=== PATIENT | male | born 1940 | race Caucasian/White ===

== ENCOUNTER 2023-02-15 14:49 | Inpatient (IN) | payer MEDICARE ==
[~2023-02-15] VITALS: Ht 167.6 cm; Wt 75.3 kg
[2023-02-15 16:06] LABS: BASOPHILS % (AUTO) 0.4 % (0.0-2.0); EOSINOPHILS # (AUTO) 0.1 K/uL (0.0-0.7); HEMATOCRIT 37 % (39-51); HEMOGLOBIN 12.4 g/dL (13.5-17.5); LYMPHOCYTES # (AUTO) 2.9 K/uL (0.8-4.8); LYMPHOCYTES % (AUTO) 26.7 % (20.0-44.0); MEAN CORPUSCULAR HEMOGLOBIN 32 PG (26.0-33.0); MEAN CORPUSCULAR HGB CONC 34 g/dl (31.0-36.0); MEAN CORPUSCULAR VOLUME 96 fL (80-96); MONOCYTES # (AUTO) 1.3 K/uL (0.1-1.30); MONOCYTES % (AUTO) 11.4 % (2.0-12.0); NEUTROPHILS # (AUTO) 6.6 K/uL (1.8-8.9); NEUTROPHILS % (AUTO) 60.5 % (43.0-81.0); PLATELET COUNT (AUTO) 235 K/uL (150-450); RED BLOOD CELL COUNT(AUTO) 3.84 MIL/uL (4.5-6.0); RED CELL DISTRIBUTION WIDTH 14.2 % (11.5-15.0)
[2023-02-15 16:32] LABS: INR 1.03 (0.91-1.10); PROTHROMBIN TIME 10.9 SECS (9.2-11.1)
[2023-02-15 16:36] LABS: CALCIUM, SERUM 8.4 mg/dL (8.5-10.1); CARBON DIOXIDE 26 mmol/L (21-32); CHLORIDE 102 mmol/L (98-107); CREATININE 1.2 mg/dL (0.6-1.3); GLUCOSE 106 mg/dL (74-106); POTASSIUM 5.5 mmol/L (3.5-5.1); SODIUM SERUM 135 mmol/L (136-145); UREA NITROGEN, BLOOD 38 mg/dL (7-18)
[2023-02-15 16:46] LABS: ALANINE AMINOTRANSFERASE 11 U/L (12-78); ALBUMIN 3.2 g/dL (3.4-5.0); ALKALINE PHOSPHATASE 65 U/L (46-116); ASPARTATE AMINOTRANSFERASE 14 U/L (15-37); BILIRUBIN,DIRECT 0.1 mg/dL (0.0-0.2); BILIRUBIN,TOTAL 0.5 mg/dL (0.2-1.0); TOTAL PROTEIN, SERUM 7.7 g/dL (6.4-8.2)
[2023-02-15 16:54] LABS: LACTIC ACID 1.3 mmol/L (0.4-2.0)
[2023-02-15 17:00] LABS: APPEARANCE,URINE CLOUDY (CLEAR); BILIRUBIN,URINE NEGATIVE (NEGATIVE); BLOOD, URINE 2+ Ery/uL (NEGATIVE); COLOR,URINE YELLOW (YELLOW); KETONES,URINE 1+ mg/dL (NEGATIVE); LEUKOCYTE ESTERASE ,URINE 2+ (NEGATIVE); NITRITE, URINE NEGATIVE (NEGATIVE); PROTEIN,URINE 3+ mg/dl (NEGATIVE); UGLUCOSE NEGATIVE (NEGATIVE); UROBILINOGEN,URINE 0.2 EU/dL (0.2)
[2023-02-15] MEDS ORDERED: APIX2.5T PO (17:02)
[2023-02-15] MEDS ORDERED: GUAI5LIQ10 PO (17:02)
[2023-02-15] MEDS ORDERED: ROPI2TAB7 PO (17:18)
[2023-02-15] MEDS ORDERED: DIGO250T PO (17:18)
[2023-02-15] MEDS ORDERED: SERT50TA PO (17:18)
[2023-02-15] MEDS ORDERED: FOLI0.8T3 PO (17:18)
[2023-02-15] MEDS ORDERED: DEXT15DR6 EACHEYE (17:18)
[2023-02-15] MEDS ORDERED: ENTA200T30 PO (17:18)
[2023-02-15] MEDS ORDERED: BRIM5DRO2 RIGHTEYE (17:18)
[2023-02-15] MEDS ORDERED: BROM1.7D9 EACHEYE (17:18)
[2023-02-15] MEDS ORDERED: MAGN400O6 PO (17:18)
[2023-02-15] MEDS ORDERED: METO25TA4 PO (17:18)
[2023-02-15] MEDS ORDERED: TIMO5DRO35 EACHEYE (17:18)
[2023-02-15] MEDS ORDERED: ACET-868 PO (17:18)
[2023-02-15] MEDS ORDERED: PIMA34CA PO (17:18)
[2023-02-15] MEDS ORDERED: CYAN-51 PO (17:18)
[2023-02-15] MEDS ORDERED: MELA3TAB41 PO (17:18)
[2023-02-15] MEDS ORDERED: FLUT1DIS IH (17:18)
[2023-02-15] MEDS ORDERED: CARB1TAB24 PO (17:18)
[2023-02-15] MEDS ORDERED: CLOP75TA15 PO (17:18)
[2023-02-15] MEDS ORDERED: LATA7.5D EACHEYE (17:18)
[2023-02-15] MEDS ORDERED: SACC250C9 PO (17:18)
[2023-02-15] MEDS ORDERED: MAGN400T8 PO (17:18)
[2023-02-15] MEDS ORDERED: CEFTRIAXONE 1GM BAG (ER ONLY) 1 GM/50 ML PIGGYBACK IV ONE (18:30)
[2023-02-15] MEDS ORDERED: CEFTRIAXONE 1GM BAG (ER ONLY) 50 ML IV ONE (18:30)
[2023-02-15 18:45] LABS: ADD URINE CULTURE YES; BACTERIA,URINE Many /HPF (None Seen); RBC,URINE 21-50 /HPF (0-2); WBC,URINE 21-50 /HPF (0-3)
[2023-02-15 18:46] LABS: SQUAMOUS EPITHELIAL CELL,UR Few /HPF (None Seen)
[2023-02-15 20:30] VITALS: BP_SYST 168; BP_SYST 178; BP_DIAS 70; BP_DIAS 87; TEMP 97.7; O2SAT 95
[2023-02-15] MEDS ORDERED: MAGNESIUM HYDROXIDE 30 ML UDC PO PRN ×2 (20:30→21:00)
[2023-02-15] MEDS ORDERED: Medication Not On Formulary EA (Melatonin 3 MG) PO PRN (20:30)
[2023-02-15] MEDS ORDERED: ACETAMINOPHEN 325 MG TABLET PO PRN (21:00)
[2023-02-15] MEDS ORDERED: MAG HYDROX/AL HYDROX/SIMETH 30 ML UDC PO PRN (21:00)
[2023-02-15] MEDS ORDERED: ONDANSETRON HCL/PF 4 MG/2 ML VIAL IVP PRN (21:00)
[2023-02-15] MEDS ORDERED: Z GUARD REMEDY 4 OZ OINT TP PRN (21:00)
[2023-02-15] MEDS: ENTACAPONE 200 MG TABLET PO SCH (21:39)
[2023-02-15] MEDS: CARBIDOPA/LEVODOPA 25/250 MG 1 UDTAB PO SCH (21:39)
[2023-02-15] MEDS: SERTRALINE HCL 50 MG TABLET PO SCH (21:39)
[2023-02-16] VITALS (13 sets, daily range): BP systolic 98–131; BP diastolic 52–76; TEMP 97.5–98.6; O2SAT 93–99
[2023-02-16] MEDS: IV NS 0.9% 1,000 ML IV PRN ×2 (00:10→13:30)
[2023-02-16] MEDS: ACETAMINOPHEN 325 MG TABLET PO PRN (00:22)
[2023-02-16] MEDS: ALBUTEROL FS 2.5 MG/3 ML VIAL.NEB NEB SCH ×4 (00:55→20:02)
[2023-02-16 06:47] LABS: CALCIUM, SERUM 7.9 mg/dL (8.5-10.1); CARBON DIOXIDE 26 mmol/L (21-32); CHLORIDE 104 mmol/L (98-107); CREATININE 1.6 mg/dL (0.6-1.3); GLUCOSE 90 mg/dL (74-106); MAGNESIUM 2.4 mg/dL (1.8-2.4); PHOSPHORUS 4.4 mg/dL (2.5-4.9); POTASSIUM 4.8 mmol/L (3.5-5.1); SODIUM SERUM 138 mmol/L (136-145); UREA NITROGEN, BLOOD 38 mg/dL (7-18)
[2023-02-16 06:50] LABS: BASOPHILS % (AUTO) 0.3 % (0.0-2.0); EOSINOPHILS # (AUTO) 0.1 K/uL (0.0-0.7); EOSINOPHILS % (AUTO) 0.9 % (0.0-6.0); HEMATOCRIT 35 % (39-51); HEMOGLOBIN 11.7 g/dL (13.5-17.5); LYMPHOCYTES # (AUTO) 2.8 K/uL (0.8-4.8); LYMPHOCYTES % (AUTO) 30.3 % (20.0-44.0); MEAN CORPUSCULAR HEMOGLOBIN 33 PG (26.0-33.0); MEAN CORPUSCULAR HGB CONC 34 g/dl (31.0-36.0); MEAN CORPUSCULAR VOLUME 96 fL (80-96); MONOCYTES # (AUTO) 0.9 K/uL (0.1-1.30); MONOCYTES % (AUTO) 9.4 % (2.0-12.0); NEUTROPHILS # (AUTO) 5.4 K/uL (1.8-8.9); NEUTROPHILS % (AUTO) 59.1 % (43.0-81.0); PLATELET COUNT (AUTO) 230 K/uL (150-450); RED BLOOD CELL COUNT(AUTO) 3.61 MIL/uL (4.5-6.0); RED CELL DISTRIBUTION WIDTH 14.2 % (11.5-15.0); WHITE BLOOD COUNT (AUTO) 9.2 K/uL (4.3-11.0)
[2023-02-16] MEDS: BUDESONIDE RESPULE INH 0.5 MG/2 ML AMPUL.NEB NEB SCH ×2 (08:05→14:09)
[2023-02-16] MEDS: CLOPIDOGREL BISULFATE 75 MG TABLET PO SCH (08:41)
[2023-02-16] MEDS: FOLIC ACID 1 MG TABLET PO SCH (08:41)
[2023-02-16] MEDS: ropiniROLE 0.5 MG TABLET PO SCH ×3 (08:41→16:29)
[2023-02-16] MEDS: CARBIDOPA/LEVODOPA 25/250 MG 1 UDTAB PO SCH ×4 (08:41→21:25)
[2023-02-16] MEDS: CYANOCOBALAMIN 500 MCG TABLET PO SCH (08:41)
[2023-02-16] MEDS: APIXABAN 2.5 MG TABLET PO SCH ×2 (08:46→16:30)
[2023-02-16] MEDS: METOPROLOL SUCCINATE 25 MG TAB.SR.24H PO SCH ×2 (08:48→16:31)
[2023-02-16] MEDS: ENTACAPONE 200 MG TABLET PO SCH ×4 (09:00→21:25)
[2023-02-16] MEDS: POLYVINYL ALCOHOL 15 ML BOTTLE EACHEYE SCH ×3 (09:00→16:29)
[2023-02-16] MEDS ORDERED: FLUTICASONE/SALMETEROL 1 DISK IH SCH (09:00)
[2023-02-16] MEDS: DIGOXIN 0.25 MG TABLET PO SCH (13:11)
[2023-02-16 17:35] LABS: CREATININE, URINE 57.6 MG/DL (30.0-125.0); URINE TOTAL PROTEIN 155.6 mg/dL (0-11.9)
[2023-02-16] MEDS: CEFTRIAXONE 1 G in IV D5W 50 ML IV SCH (18:05)
[2023-02-16] MEDS: MAGNESIUM OXIDE 400 MG TABLET PO SCH (18:05)
[2023-02-16] MEDS: SERTRALINE HCL 50 MG TABLET PO SCH (21:25)
[2023-02-17] VITALS (15 sets, daily range): BP systolic 99–180; BP diastolic 70–93; TEMP 97.5–98.5; O2SAT 94–100
[2023-02-17] MEDS: ALBUTEROL FS 2.5 MG/3 ML VIAL.NEB NEB SCH ×5 (00:59→19:31)
[2023-02-17] MEDS: ACETAMINOPHEN 325 MG TABLET PO PRN (03:00)
[2023-02-17] MEDS: IV NS 0.9% 1,000 ML IV PRN ×2 (03:10→18:07)
[2023-02-17 06:54] LABS: BASOPHILS % (AUTO) 0.4 % (0.0-2.0); EOSINOPHILS # (AUTO) 0.1 K/uL (0.0-0.7); EOSINOPHILS % (AUTO) 1.4 % (0.0-6.0); HEMATOCRIT 36 % (39-51); HEMOGLOBIN 11.8 g/dL (13.5-17.5); LYMPHOCYTES % (AUTO) 29.7 % (20.0-44.0); MEAN CORPUSCULAR HEMOGLOBIN 32 PG (26.0-33.0); MEAN CORPUSCULAR HGB CONC 33 g/dl (31.0-36.0); MEAN CORPUSCULAR VOLUME 97 fL (80-96); MONOCYTES # (AUTO) 0.8 K/uL (0.1-1.30); MONOCYTES % (AUTO) 8.2 % (2.0-12.0); NEUTROPHILS # (AUTO) 6.1 K/uL (1.8-8.9); NEUTROPHILS % (AUTO) 60.3 % (43.0-81.0); PLATELET COUNT (AUTO) 229 K/uL (150-450); RED BLOOD CELL COUNT(AUTO) 3.68 MIL/uL (4.5-6.0); RED CELL DISTRIBUTION WIDTH 14.4 % (11.5-15.0); WHITE BLOOD COUNT (AUTO) 10.2 K/uL (4.3-11.0)
[2023-02-17 07:14] LABS: ALANINE AMINOTRANSFERASE 9 U/L (12-78); ALBUMIN 3.1 g/dL (3.4-5.0); ASPARTATE AMINOTRANSFERASE 15 U/L (15-37); BILIRUBIN,TOTAL 0.5 mg/dL (0.2-1.0); CALCIUM, SERUM 7.7 mg/dL (8.5-10.1); CARBON DIOXIDE 19 mmol/L (21-32); CHLORIDE 103 mmol/L (98-107); CREATININE 1.6 mg/dL (0.6-1.3); GLUCOSE 87 mg/dL (74-106); MAGNESIUM 2.4 mg/dL (1.8-2.4); POTASSIUM 4.9 mmol/L (3.5-5.1); SODIUM SERUM 135 mmol/L (136-145); TOTAL PROTEIN, SERUM 7.3 g/dL (6.4-8.2); UREA NITROGEN, BLOOD 39 mg/dL (7-18)
[2023-02-17] MEDS: BUDESONIDE RESPULE INH 0.5 MG/2 ML AMPUL.NEB NEB SCH ×2 (07:34→15:12)
[2023-02-17 07:37] LABS: ALKALINE PHOSPHATASE 60 U/L (46-116)
[2023-02-17] MEDS: ENTACAPONE 200 MG TABLET PO SCH ×6 (08:54→21:31)
[2023-02-17] MEDS: FOLIC ACID 1 MG TABLET PO SCH (08:54)
[2023-02-17] MEDS: POLYVINYL ALCOHOL 15 ML BOTTLE EACHEYE SCH ×3 (08:54→17:49)
[2023-02-17] MEDS: CARBIDOPA/LEVODOPA 25/250 MG 1 UDTAB PO SCH ×5 (08:54→21:31)
[2023-02-17] MEDS: CYANOCOBALAMIN 500 MCG TABLET PO SCH ×2 (08:55→15:10)
[2023-02-17] MEDS: ropiniROLE 0.5 MG TABLET PO SCH ×5 (08:55→17:49)
[2023-02-17] MEDS: CLOPIDOGREL BISULFATE 75 MG TABLET PO SCH ×4 (08:55→15:39)
[2023-02-17] MEDS: METOPROLOL SUCCINATE 25 MG TAB.SR.24H PO SCH ×4 (08:56→17:50)
[2023-02-17] MEDS: APIXABAN 2.5 MG TABLET PO SCH ×3 (08:57→17:51)
[2023-02-17] MEDS: DIGOXIN 0.25 MG TABLET PO SCH ×2 (13:00→15:08)
[2023-02-17] MEDS: MAGNESIUM OXIDE 400 MG TABLET PO SCH (17:49)
[2023-02-17] MEDS: CEFTRIAXONE 1 G in IV D5W 50 ML IV SCH (17:53)
[2023-02-17] MEDS: SERTRALINE HCL 50 MG TABLET PO SCH (21:31)
[2023-02-18] VITALS (7 sets, daily range): BP systolic 155–160; BP diastolic 86–91; TEMP 98.1–98.2; O2SAT 95–100
[2023-02-18] MEDS: ALBUTEROL FS 2.5 MG/3 ML VIAL.NEB NEB SCH ×3 (01:30→13:36)
[2023-02-18 06:12] LABS: BASOPHILS % (AUTO) 0.2 % (0.0-2.0); EOSINOPHILS # (AUTO) 0.1 K/uL (0.0-0.7); EOSINOPHILS % (AUTO) 1.1 % (0.0-6.0); HEMATOCRIT 32 % (39-51); HEMOGLOBIN 10.8 g/dL (13.5-17.5); LYMPHOCYTES % (AUTO) 21.5 % (20.0-44.0); MEAN CORPUSCULAR HEMOGLOBIN 33 PG (26.0-33.0); MEAN CORPUSCULAR HGB CONC 34 g/dl (31.0-36.0); MEAN CORPUSCULAR VOLUME 97 fL (80-96); MONOCYTES # (AUTO) 0.8 K/uL (0.1-1.30); NEUTROPHILS # (AUTO) 6.4 K/uL (1.8-8.9); NEUTROPHILS % (AUTO) 68.2 % (43.0-81.0); PLATELET COUNT (AUTO) 208 K/uL (150-450); RED CELL DISTRIBUTION WIDTH 14.5 % (11.5-15.0); WHITE BLOOD COUNT (AUTO) 9.3 K/uL (4.3-11.0)
[2023-02-18 06:23] LABS: CALCIUM, SERUM 7.6 mg/dL (8.5-10.1); CARBON DIOXIDE 25 mmol/L (21-32); CHLORIDE 106 mmol/L (98-107); CREATININE 1.3 mg/dL (0.6-1.3); GLUCOSE 87 mg/dL (74-106); MAGNESIUM 2.4 mg/dL (1.8-2.4); POTASSIUM 5.5 mmol/L (3.5-5.1); SODIUM SERUM 138 mmol/L (136-145); UREA NITROGEN, BLOOD 35 mg/dL (7-18)
[2023-02-18] MEDS: BUDESONIDE RESPULE INH 0.5 MG/2 ML AMPUL.NEB NEB SCH (07:05)
[2023-02-18] MEDS ORDERED: SODIUM POLYSTYRENE SULFONATE 15 G/60 ML BOTTLE PO ONE (08:30)
[2023-02-18] MEDS: CARBIDOPA/LEVODOPA 25/250 MG 1 UDTAB PO SCH ×2 (08:33→12:55)
[2023-02-18] MEDS: ENTACAPONE 200 MG TABLET PO SCH ×2 (08:33→12:53)
[2023-02-18] MEDS: CYANOCOBALAMIN 500 MCG TABLET PO SCH (08:33)
[2023-02-18] MEDS: FOLIC ACID 1 MG TABLET PO SCH (08:33)
[2023-02-18] MEDS: ropiniROLE 0.5 MG TABLET PO SCH ×2 (08:33→12:51)
[2023-02-18] MEDS: CLOPIDOGREL BISULFATE 75 MG TABLET PO SCH (08:34)
[2023-02-18] MEDS: METOPROLOL SUCCINATE 25 MG TAB.SR.24H PO SCH (08:35)
[2023-02-18] MEDS: APIXABAN 2.5 MG TABLET PO SCH (08:36)
[2023-02-18] MEDS: POLYVINYL ALCOHOL 15 ML BOTTLE EACHEYE SCH ×2 (09:46→12:50)
[2023-02-18] MEDS ORDERED: CEPH500C2 PO (11:04)
[2023-02-18] MEDS: DIGOXIN 0.25 MG TABLET PO SCH (12:54)
== END 2023-02-18 14:25 | DRG 682 ==
LOC: ER 14:54 → MEDSG1 19:33
PROVIDERS: ADMIT Internal Medicine; ATTEND Nurse Practitioner Acute Care
DX: N17.0 Acute kidney failure with tubular necrosis (principal); E43 Unspecified severe protein-calorie malnutrition; G93.41 Metabolic encephalopathy; N39.0 Urinary tract infection, site not specified; E87.1 Hypo-osmolality and hyponatremia; E86.0 Dehydration; I12.9 Hypertensive chronic kidney disease with stage 1 through stage 4 chronic kidney disease, or unspecified chronic kidney disease; N18.9 Chronic kidney disease, unspecified; K21.9 Gastro-esophageal reflux disease without esophagitis; J44.9 Chronic obstructive pulmonary disease, unspecified; M89.8X9 Other specified disorders of bone, unspecified site; G25.81 Restless legs syndrome; M62.50 Muscle wasting and atrophy, not elsewhere classified, unspecified site; Z88.1 Allergy status to other antibiotic agents; Z88.2 Allergy status to sulfonamides; Z88.8 Allergy status to other drugs, medicaments and biological substances; Z79.02 Long term (current) use of antithrombotics/antiplatelets; Z79.01 Long term (current) use of anticoagulants; Z79.899 Other long term (current) drug therapy; Z79.51 Long term (current) use of inhaled steroids; B96.89 Other specified bacterial agents as the cause of diseases classified elsewhere; F02.80 Dementia in other diseases classified elsewhere, unspecified severity, without behavioral disturbance, psychotic disturbance, mood disturbance, and anxiety; G20.A1 Parkinson's disease without dyskinesia, without mention of fluctuations; E88.09 Other disorders of plasma-protein metabolism, not elsewhere classified; E87.5 Hyperkalemia; I48.0 Paroxysmal atrial fibrillation; I25.10 Atherosclerotic heart disease of native coronary artery without angina pectoris; E83.41 Hypermagnesemia; Z87.440 Personal history of urinary (tract) infections; D64.9 Anemia, unspecified
CPT/HCPCS: 36415; 71045-TC; 76770-TC; 80048-TC; 80053-TC; 80076-TC; 80162-TC; 81001; 82570-TC; 83605-TC; 83735-TC; 84100-TC; 84300-TC; 84484-TC; 85025-TC; 85730-TC; 87040-TC; 87086-TC; 92526; 92611-TC; 94799-TC; 97110-TC; 97112-TC; 97530-TC; A4223; G0378; J0696; J7030; J7060